=== PATIENT | male | born 1945 | race Caucasian/White ===

== ENCOUNTER → 2025-04-15 09:44 | Outpatient (CLI) | payer MEDICARE, SELFPAY ==
--- NOTE | 2025-04-15 10:28 | DI.RAD.S_ITS ---
PROCEDURE: XR LUMBAR SPINE 2-3V INDICATIONS: left flank/lumbar pain x 3 days TECHNIQUE: 3 views of the lumbar spine were acquired. COMPARISON: [facility], CR, XR KUB, 04/15/2025, 10:23. FINDINGS: Bones: 5 [id number] vertebrae are present. There is mild grade 1 anterolisthesis seen at the L5-S1 level. No associated pars defects are seen. There is a remote appearing fracture of the L1 level, with 20% loss of height anteriorly. No merrick acute features are seen. There is moderate disc space narrowing seen at L3-L4, with at least moderate disc space narrowing at L5-S1. The disc heights otherwise appear well-preserved. Lower lumbar spine facet arthropathy is seen. Soft tissues: Overlying bowel gas pattern is normal. No suspicious soft tissue calcifications. IMPRESSION: No merrick acute plain film abnormality is seen. There is an L1 fracture seen, which has a remote appearance. However, please correlate with patient history and focal tenderness. Grade 1 L5-S1 anterolisthesis seen, without associated pars defects. Generalized degenerative changes are seen, which are worst inferiorly. Dictated by: Guevara Booth M.D. on 04/15/2025 at 10:04 Approved by: Guevara Booth M.D. on 04/15/2025 at 10:06
--- NOTE | 2025-04-15 10:28 | DI.RAD.S_ITS ---
PROCEDURE: XR KUB INDICATIONS: left flank/back pain x3 days TECHNIQUE: One view of the abdomen acquired. COMPARISON: [facility], CR, XR LUMBAR SPINE 2-3V, 04/15/2025, 10:23. FINDINGS: Surgical changes and devices: Central pelvic clips are seen. Bowel: Bowel gas pattern is normal. Soft tissues: No suspicious abdominal calcifications. Visualized solid organ contours appear normal in size. Bones: No suspicious bony lesions. Age-appropriate bony degenerative changes are seen. IMPRESSION: No acute plain film abnormality is seen. Dictated by: Guevara Booth M.D. on 04/15/2025 at 10:03 Approved by: Guevara Booth M.D. on 04/15/2025 at 10:04
[2025-04-15 10:36] LABS: COVID-19 CEPHEID 4-PLEX PCR Negative (Negative); Influenza A - CEPHEID Flu A NEGATIVE (NEGATIVE); Influenza B - CEPHEID Flu B NEGATIVE (NEGATIVE)
== END ==
PROVIDERS: Visit Provider Physician Assistant
DX: R52 Pain, unspecified (principal); R35.1 Nocturia; M54.9 Dorsalgia, unspecified; N13.2 Hydronephrosis with renal and ureteral calculous obstruction; M43.17 Spondylolisthesis, lumbosacral region; S32.019A Unspecified fracture of first lumbar vertebra, initial encounter for closed fracture
CPT/HCPCS: 72100; 74018; 87086; 87637

== ENCOUNTER 2025-04-15 10:50 | Emergency (ER) | payer MEDICARE, SELFPAY ==
[2025-04-15 10:59] VITALS: BP 141/65; PULSE 66; RESP 18; TEMP 36.4; O2SAT 96; BMI 27.8
--- NOTE | 2025-04-15 11:11 | DI.CT.S_ITS ---
PROCEDURE: CT KIDNEY URETER BLADDER (KUB) INDICATIONS: flank pain TECHNIQUE: Axial sections were acquired from the lung bases to the pubic symphysis. Coronal and sagittal reformats were performed. For radiation dose reduction, the following was used: automated exposure control, adjustment of mA and/or kV according to patient size. COMPARISON: [facility], CR, XR LUMBAR SPINE 2-3V, 04/15/2025, 10:23. [facility], CR, XR KUB, 04/15/2025, 10:23. FINDINGS: Image quality: Diagnostic. Lower Chest: No significant findings. URINARY: Right Kidney: No stones or hydronephrosis. Several simple appearing right renal cysts can be seen. Right Ureter: No hydroureter. Left Kidney: There is moderate left-sided hydronephrosis. There is a nonobstructing left-sided kidney stone seen, measuring 4 mm. Mild left-sided perinephric fat stranding can be seen. Left Ureter: There is at least moderate left-sided hydroureter. There is an obstructing stone seen within the distal most left ureter, near the ureterovesicular junction, as on series 2, image 116 and on series 4, image 54, measuring 9 mm and 1000 Hounsfield units. Bladder: An irregular bladder is seen, with a right-sided bladder diverticulum. Stones can be seen within the bladder diverticulum. ABDOMEN: Liver: No contour-deforming solid mass. Gallbladder: No radiopaque gallstones or wall thickening. Biliary ducts: No biliary dilation. Pancreas: No ductal dilation. Spleen: Size is within normal limits. Adrenal Glands: No adrenal nodules. Stomach and Bowel: Normal colonic caliber, without significant wall thickening. No dilated loops of small bowel are seen. A normal appendix is noted. Peritoneum: No abnormal intraperitoneal fluid. No free air. Ventral Wall: No hernia. Abdominal Nodes: No enlarged retroperitoneal or mesenteric lymph nodes. Vessels: Aorta and inferior vena cava are normal in size. PELVIS: Pelvic Organs: Unremarkable. Pelvic Nodes: Unremarkable. Miscellaneous: Bilateral fat containing inguinal hernias are seen, left larger than right. Bones: Generalized degenerative changes are seen. There is a remote L1 fracture peroneal remote appearing Schmorl's node can be seen at the superior endplate of L4. Mild grade 1 anterolisthesis is seen at L5-S1, yet without associated pars defects. IMPRESSION: There is a 9 mm obstructing stone seen near the left ureterovesicular junction, with associated left-sided hydroureter and hydronephrosis. There is a nonobstructing left-sided kidney stone. Additional findings: Simple right renal cysts Significant lumbar spine degenerative change Irregular bladder, with stones within a right-sided bladder diverticulum Bilateral fat containing inguinal hernias Dictated by: Guevara Booth M.D. on 04/15/2025 at 10:40 Approved by: Guevara Booth M.D. on 04/15/2025 at 10:44
--- NOTE | 2025-04-15 11:13 | ED.BACK ---
HPI - Back Pain/Injury General Chief Complaint: Back Pain/Injury Stated Complaint: possible Kidney stone Sent from Walk in for CT Time Seen by Provider: 04/15/25 10:58 Source: patient History of Present Illness HPI Narrative: 79-year-old male with a history of coronary disease and kidney stones in the past complaining of left flank pain x3 days. He was seen in urgent care and had hematuria was referred here for further evaluation. Presently comfortable, symptoms have been present for 3 days. Had nausea and vomiting at the onset. No fevers or chills, no dysuria. He is not anticoagulated is taking Brilinta and a statin. Does not have a local primary care provider. Related Data Previous Rx's ?Medication ?Instructions ?Recorded ondansetron 4 mg disintegrating 4 mg PO Q6H PRN nausea and 04/15/25 tablet vomiting #14 tabs oxycodone 5 mg capsule 5 mg PO Q6H PRN pain #14 caps 04/15/25 Allergies Allergy/AdvReac Type Severity Reaction Status Date / Time No Known Drug Allergies Allergy Unverified 04/15/25 09:31 Patient History Social History Smoking Status: Never smoker Smoking Status: Never smoker Exam Initial Vital Signs Initial Vital Signs: Vital Signs Temperature 97.6 F 04/15/25 10:59 Pulse Rate 66 04/15/25 10:59 Respiratory Rate 18 04/15/25 10:59 Blood Pressure 141/65 H 04/15/25 10:59 Pulse Oximetry 96 04/15/25 10:59 Oxygen Delivery Method Room Air 04/15/25 10:59 vital signs are reviewed Const General: cooperative and No acute distress [facility] Head: normocephalic and atraumatic Face and sinus: face symmetric Mouth: moist mucous membranes Neck Neck: normal visual inspection, supple and No JVD Resp Effort & Inspection: normal respiratory effort and able to speak in complete sentences Auscultation: clear to auscultation bilaterally Cardio Rate: regular rate Rhythm: regular rhythm Heart Sounds: no murmurs Other: Normal heart rate GI Inspection: normal to inspection Palpation: soft Auscultation: normal bowel sounds Other: No CVAT Skin General: no rashes or lesions noted and warm Neuro General: patient alert, patient oriented x3 and moves all extremities Speech: speech normal Psych Appearance: grossly normal Course Orders Ordered: ED Orders 04/15/25 11:11 CT kidney ureter bladder (KUB) Stat UA dip and micro [Urinalysis and Microscopic] Stat 04/15/25 11:32 CBC Auto Diff [Complete Blood Count AUTO DIFF] Stat CMP [Comprehensive Metabolic Panel] Stat Reevaluation(s) Reevaluation #1: Discussed with Urology, Dr. Laboy, patient can be seen in the office within the next week, they will arrange that. Prior to discharge I am to confirm that the patient does not have concern for infection and pain is adequately controlled Vital Signs Vital signs: Vital Signs - 8 hr 04/15/25 10:59 Temperature 97.6 F Pulse Rate 66 Respiratory Rate 18 Blood Pressure 141/65 H Pulse Oximetry 96 Oxygen Delivery Method Room Air MDM - Back Pain/Injury Lab Data Lab results narrative: CBC is unremarkable, platelets are normal creatinine is elevated with no baseline known. I reviewed urinalysis from urgent Care, has hematuria without leukocyte esterase or nitrites 04/15/25 11:32 04/15/25 11:32 Labs: Lab Results 04/15/25 Range/Units 11:32 WBC 10.4 (4.5-11.0) X10^3/uL RBC 4.45 L (4.5-5.9) X10^6/uL Hgb 14.3 (13.5-17.5) g/dL Hct 41.7 (41-53) % MCV 93.7 (80-100) fL MCH 32.2 (26-34) PG MCHC 34.4 (30-36) % RDW 14.9 H (11.6-14.8) % Plt Count 180 (150-400) X10^3/uL Neut % (Auto) 79.5 H (50-75) % Lymph % (Auto) 8.4 L (25-40) % Cotton % (Auto) 11.1 (3-14) % Eos % (Auto) 0.6 L (2-4) % Baso % (Auto) 0.4 (0-2) % Neut # (Auto) 8300 H (7279-5921) /uL Lymph # (Auto) 900 L (0597-2624) /uL Cotton # (Auto) 1200 H (0-900) /uL Eos # (Auto) 100 (0-450) /uL Baso # (Auto) 0 (0-100) /uL Sodium 134 L (137-145) mmol/L Potassium 4.4 (3.4-5.1) mmol/L Chloride 104 (98-107) mmol/L Carbon Dioxide 19 L (22-32) mmol/L BUN 31 H (9-20) mg/dL Creatinine 1.85 H (0.66-1.25) mg/dL Estimated GFR 36 L (>60) mL/min BUN/Creatinine Ratio 16.8 (6-22) Glucose 100 H (70-99) mg/dL Calcium 9.6 (8.4-10.2) mg/dL Total Bilirubin 1.5 H (0.2-1.3) mg/dL AST 33 (17-59) IU/L ALT 21 (<50) IU/L Alkaline Phosphatase 85 (38-126) U/L Total Protein 7.5 (6.3-8.2) g/dL Albumin 4.4 (3.5-5.0) g/dL Globulin 3.1 (1.7-4.1) g/dL Albumin/Globulin Ratio 1.4 (1.0-2.8) Imaging Data CT scan - abdomen/pelvis: My Impression: Independently reviewed CT KUB, large stone distal left ureter with hydronephrosis on the left Radiologist's Impression: [place] [address] CT Scan Report Signed Patient: Konrad Herzog MR#: [id number] : 1945 Acct:[id number] Age/Sex: 79 / M Date of Service: 04/15/25 Loc: ED Accession Number: [id number] Procedure: CT kidney ureter bladder (KUB) Ordering Provider: Johnathan Bhatti MD PROCEDURE: CT KIDNEY URETER BLADDER (KUB) INDICATIONS: flank pain TECHNIQUE: Axial sections were acquired from the lung bases to the pubic symphysis. Coronal and sagittal reformats were performed. For radiation dose reduction, the following was used: automated exposure control, adjustment of mA and/or kV according to patient size. COMPARISON: [facility], CR, XR LUMBAR SPINE 2-3V, 04/15/2025, 10:23. [facility], CR, XR KUB, 04/15/2025, 10:23. FINDINGS: Image quality: Diagnostic. Lower Chest: No significant findings. URINARY: Right Kidney: No stones or hydronephrosis. Several simple appearing right renal cysts can be seen. Right Ureter: No hydroureter. Left Kidney: There is moderate left-sided hydronephrosis. There is a nonobstructing left-sided kidney stone seen, measuring 4 mm. Mild left-sided perinephric fat stranding can be seen. Left Ureter: There is at least moderate left-sided hydroureter. There is an obstructing stone seen within the distal most left ureter, near the ureterovesicular junction, as on series 2, image 116 and on series 4, image 54, measuring 9 mm and 1000 Hounsfield units. Bladder: An irregular bladder is seen, with a right-sided bladder diverticulum. Stones can be seen within the bladder diverticulum. ABDOMEN: Liver: No contour-deforming solid mass. Gallbladder: No radiopaque gallstones or wall thickening. Biliary ducts: No biliary dilation. Pancreas: No ductal dilation. Spleen: Size is within normal limits. Adrenal Glands: No adrenal nodules. Stomach and Bowel: Normal colonic caliber, without significant wall thickening. No dilated loops of small bowel are seen. A normal appendix is noted. Peritoneum: No abnormal intraperitoneal fluid. No free air. Ventral Wall: No hernia. Abdominal Nodes: No enlarged retroperitoneal or mesenteric lymph nodes. Vessels: Aorta and inferior vena cava are normal in size. PELVIS: Pelvic Organs: Unremarkable. Pelvic Nodes: Unremarkable. Miscellaneous: Bilateral fat containing inguinal hernias are seen, left larger than right. Bones: Generalized degenerative changes are seen. There is a remote L1 fracture peroneal remote appearing Schmorl's node can be seen at the superior endplate of L4. Mild grade 1 anterolisthesis is seen at L5-S1, yet without associated pars defects. IMPRESSION: There is a 9 mm obstructing stone seen near the left ureterovesicular junction, with associated left-sided hydroureter and hydronephrosis. There is a nonobstructing left-sided kidney stone. Additional findings: Simple right renal cysts Significant lumbar spine degenerative change Irregular bladder, with stones within a right-sided bladder diverticulum Bilateral fat containing inguinal hernias Dictated by: Guevara Booth M.D. on 04/15/2025 at 10:40 Approved by: Guevara Booth M.D. on 04/15/2025 at 10:44 MDM Narrative Medical decision making narrative: Well-appearing 79-year-old male with left flank pain. Has hematuria on urine dipstick from urgent care with urine described as being grossly bloody. He is not having dysuria. I still we will consider infection is possible although clinically he does not have pyelonephritis. Concerned with the possibility of abdominal aortic aneurysm, considered zoster this does not seem to be present. I think a kidney stone is likely we will obtain a CT KUB to further assess I have also ordered basic labs to evaluate his renal function and electrolytes as well as platelet count Patient appears comfortable at the time of discharge. Discussed indications for return to the emergency department including signs of infection or uncontrolled pain, has urology follow up arranged. Discharge Plan Departure Patient Disposition: Home Clinical Impression: Renal colic on left side Hydronephrosis Qualifiers: Hydronephrosis type: with ureteral calculous obstruction Qualified Code(s): N13.2 - Hydronephrosis with renal and ureteral calculous obstruction Instructions: Kidney Stones -- Adult Activity Restrictions/Additional Instructions: Emergency department workup today shows that you have a large left ureteral stone. It is down low but probably will not pass on its own. Get adequate fluids, you can use ondansetron as needed for nausea and acetaminophen as needed for pain, I have also provided a prescription for a few oxycodone they can use as needed for pain. Urology will contact you for follow up in the next week for a recheck. In the meantime, strain your urine when you urinate and if you develop fevers shaking chills uncontrolled pain or vomiting return to the emergency department. Docusate sodium or Colace is available [id number] has a stool softener, uses if you are needing to use the oxycodone, this should prevent constipation. Prescriptions: New oxycodone 5 mg capsule 5 mg PO Q6H PRN (Reason: pain) Qty: 14 0RF ondansetron 4 mg tablet,disintegrating 4 mg PO Q6H PRN (Reason: nausea and vomiting) Qty: 14 0RF Referrals: Luis Laboy DO [Physician, Urology] Referral Note: L ureteral stone, hydronephrosis Stand Alone Forms: Patient Portal/API
[2025-04-15 11:39] LABS: Add Manual Diff / Slide Review NO; Hematocrit 41.7 % (41-53); Hemoglobin 14.3 g/dL (13.5-17.5); Lymphocytes Absolute Auto 900 /uL (1100-4500); Mean Corpuscular HGB Conc 34.4 % (30-36); Mean Corpuscular Hemoglobin 32.2 PG (26-34); Mean Corpuscular Volume 93.7 fL (80-100); Platelet Count 180 X10^3/uL (150-400)
[2025-04-15 11:56] LABS: Alanine Aminotransferase 21 IU/L (<50); Albumin 4.4 g/dL (3.5-5.0); Albumin Globulin Ratio 1.4 (1.0-2.8); Alkaline Phosphatase 85 U/L (38-126); Blood Urea Nitrogen 31 mg/dL (9-20); Calcium 9.6 mg/dL (8.4-10.2); Carbon Dioxide 19 mmol/L (22-32); Chloride 104 mmol/L (98-107); Estimated Glomerular Filt Rate 36 mL/min (>60); Globulin 3.1 g/dL (1.7-4.1); Glucose 100 mg/dL (70-99); HEMOLYSIS 19 (0-50); Potassium 4.4 mmol/L (3.4-5.1); Sodium 134 mmol/L (137-145); Total Protein 7.5 g/dL (6.3-8.2)
[2025-04-15 12:56] VITALS: BP 140/66; PULSE 72; O2SAT 97
== END 2025-04-15 13:06 | disposition home or self-care (01) ==
PROVIDERS: Emergency Provider Emergency Medicine
DX: N13.2 Hydronephrosis with renal and ureteral calculous obstruction (principal); N23 Unspecified renal colic; R11.2 Nausea with vomiting, unspecified
CPT/HCPCS: 74176; 80053; 85025; 99281; 99284

== ENCOUNTER → 2025-04-21 15:18 | Outpatient (CLI) | payer MEDICARE, SELFPAY | PROVIDERS: Visit Provider Urology | DX: R39.9 Unspecified symptoms and signs involving the genitourinary system (principal); N20.1 Calculus of ureter; N21.0 Calculus in bladder | CPT/HCPCS: 81002; 87086; 99214 ==

== ENCOUNTER 2025-04-28 13:41 | Day surgery (SDC) | payer MEDICARE, SELFPAY ==
[2025-04-27 08:55] VITALS: BMI 27.8
--- NOTE | 2025-04-28 | PATH_ITS ---
[facility] Accession Number: [id number] No. of containers..01 Tissue . 01 Material submitted: . bladder - BLADDER MASS . 01 Diagnosis: BLADDER MASS, TRANSURETHRAL RESECTION OF BLADDER TUMOR: Invasive urothelial carcinoma with micropapillary features. Please see cancer case summary. . CANCER CASE SUMMARY Procedure: Transurethral resection of bladder tumor (TURBT). Tumor: Tumor site: Within diverticulum of right bladder wall per operative note 04/28/2025. Histologic type: Urothelial carcinoma, micropapillary. Histologic grade: High grade. Tumor extent: Extensive invasion into lamina propria (subepithelial connective tissue). Lymphatic and/or vascular invasion: Not identified. Mucularis propria: Not identified. Additional findings: Urothelial carcinoma in-situ. ENRIQUETA 05/04/2025 1121 Local . 01 Comment: This case was also reviewed by Dr. Navid Alvarenga, who agrees with the interpretation. . Dr. Lavinia Gardner discussed results with Dr. Benoit Woods's Billing Department Supervisor, on 05-04-25 at approximately 11:09 a.m. . 01 Electronically signed: . Lavinia Gardner MD, Pathologist NPI- [id number] . 01 Gross description: . Received in formalin with two identifiers and bladder mass are multiple waldron soft tissue fragments received on friable Telfa paper aggregating to 1.2 x 1.0 x 0.3 cm. Filtered and submitted entirely in A1. ([id number]) /MRV 04/30/20253 Local . 01 Pathologist provided ICD-10: N20.1, N21.0, C67.9 . 01 CPT . 016186 Specimen Comment: A courtesy copy of this report has been sent to [facility] Performed at: [address] [address] [address] [address], [place], [place] [id number] MD Konrad Patel MD Phone: [phone]
[2025-04-28] MEDS: LACTATED RINGERS 1,000 ML 42 ML IV (14:08)
[2025-04-28] MEDS: ACETAMINOPHEN 325 MG TABLET 975 MG PO (14:08)
[2025-04-28 14:13] VITALS: BP 124/65; PULSE 65; RESP 16; TEMP 36.6; O2SAT 99; BMI 27.2
--- NOTE | 2025-04-28 15:53 | PM.PREOP ---
Pre-operative Note COVID-19 COVID-19 status: Not tested Interval Note History & Physical reviewed/Exam performed by Physician: Yes Changes to H&P: No
[2025-04-28] MEDS: levoFLOXacin 500 MG/100 ML PIGGYBACK 100 MG IV (16:25)
--- NOTE | 2025-04-28 16:48 | SUR.OPER ---
Lithotomy on padded OR bed, head on pillow, arms secured on padded arm boards at <90 degrees abduction. Legs secured in padded yellow fins stirrups. All pressure points padded and protected
[2025-04-28 17:43] VITALS: BP 145/88; PULSE 72; RESP 12; TEMP 36.5; O2SAT 95
[2025-04-28 17:52] VITALS: BP 136/65; PULSE 69; RESP 13; TEMP 36.5; O2SAT 96
--- NOTE | 2025-04-28 17:52 | P.OP_ITS ---
Operative Date/Time/Diagnoses Date of procedure: 04/28/25 Time of procedure: 16:30 Pre-op diagnosis: Bladder stones, left ureteral stone Post-op diagnosis: other (Bladder mass, bladder stones, left ureteral stone) Procedure & Clinicians Procedure: Cystoscopy Transurethral resection of bladder tumor Left retrograde ureteropyelogram Left ureteroscopy, laser lithotripsy Left ureteral stent placement Intraoperative interpretation of fluoroscopic images, total time < 1 hour Same procedure(s) as scheduled: No (Was found to have a 2cm bladder mass within a right bladder diverticulum) Indications: 79 y/o M w/ h/o nephrolithiasis who was recently diagnosed w/ a 9mm left distal ureterolith with resultant upstream moderate hydroureteronephrosis and several stones within a bladder wall diverticulum. Discussed treatment options to include continued medical expulsion therapy (not recommended given he has to sail home) vs cystoscopy, left ureteroscopy, laser lithotripsy with left ureteral stent placement and a cystolithalopaxy. Discussed risks of the procedure to include but not limited to pain, bleeding, infection, injury to urethra/bladder/ureter, inability to access the ureter requiring discussion with Interventional Radiology regarding a possible ureteral stent placement in an antegrade fashion vs a possible nephroureteral stent and/or percutaneous nephrostomy tube, urinary tract infection, inability to remove all of the stone in one setting, need for emergent open repair of bladder and/or ureter, need for multiple ureteroscopic interventions necessary to render the patient stone free. Surgeon: Luis Laboy Click Yes if Unassisted: Yes Anesthesia Type: General Operative Notes Findings: 2cm and a 1cm papillary mass within a right bladder wall diverticulum concerning for urothelial cell carcinoma with adherent bladder stones, a few large bladder stones within the diverticulum, large left ureteral stone Closure Type: not applicable Specimen(s): other (Bladder mass, bladder stones, left ureteral stone) Applied: none Estimated Blood Loss (mL): 20 Blood products transfused: none Procedure in detail: Patient was identified in the preoperative holding area and consent confirmed. He was then brought to the operating room where general anesthesia was induced. He was then placed in the low lithotomy position. He was then prepped and draped in the usual sterile fashion. A surgical timeout was conducted and all were in agreement. Access to the bladder was obtained via a 21Fr cystoscope. Complete cystoscopy was then performed using a 30 and 70 degree lens. A 2cm and a 1cm papillary mass concerning for urothelial cell carcinoma was appreciated within a right bladder wall diverticulum with adherent bladder stones. Bilateral ureteral orifices were visualized and noted to be orthotopic in nature. No other concerning lesions were appreciated. The left ureteral stone was noted to be at the level of the left ureteral orifice. The cystoscope was then removed and his urethral meatus was serially dilated using [place] sounds from 22Fr to 30Fr. The 26Fr resectoscope with visual obturator was then advanced through his urethra and into his bladder. The working element with Gyrus loop was then assembled and passed through the resectoscope and into the bladder. A few large bladder stones were appreciated within this bladder diverticulum and were evacuated via the resectoscope sheath. The aforementioned masses were then resected as much as they could be (given they were in a diverticulum and did not have muscularis propria present). Any residual mass was then extensively fulgurated. All bladder specimens were then manually evacuated from the bladder using the resectoscope. The resectoscope was then removed and the semirigid ureteroscope was easily advanced to the level of the left ureteral orifice and a 272 micron laser fiber was then utilized to perform laser lithotripsy.? All stone fragments >1mm in size were removed via the stone basket and sent for chemical analysis.? Significant edema was appreciated at the level of the left ureteral orifice.? A 0.035 sensor tip ureteral guidewire was then advanced through the ureteroscope and into the left renal pelvis. The entire ureter was then visualized upon removal of the ureteroscope. The cystoscope was then backloaded over the ureteral guidewire and advanced into the bladder. A 6Fr multi-length JJ ureteral stent without string was then advanced over the ureteral guidewire.? Upon removal of the guidewire, a good curl was noted in the left renal pelvis upon fluoroscopy and visually within the bladder.? The bladder was then drained.? Anesthesia was reversed, he was extubated in the OR and transferred to the PACU in stable condition for recovery. Complications: none Post-operative Condition: stable Disposition: PACU Plan for aftercare: Discharge home from PACU. Will return to Urology clinic in 4 weeks for a cystoscopy and left ureteral stent removal. Will be contacted over the phone to discuss his pathology results.
--- NOTE | 2025-04-28 17:54 | DI.RAD.S_ITS ---
PROCEDURE: XR ABDOMEN 1V INDICATIONS: LEFT CYSTO TECHNIQUE: 2 intra-operative images acquired by the Urology service. COMPARISON: None. FINDINGS: Left double pigtail ureteral stent is in proper position with the proximal end overlying the renal pelvis and the distal end overlying the urinary bladder. Upper collecting system is opacified appears grossly normal IMPRESSION: Left ureteral stent in satisfactory position Dictated by: Mundo Dee M.D. on 04/29/2025 at 11:16 Approved by: Mundo Dee M.D. on 04/29/2025 at 11:17
== END 2025-04-28 18:12 | disposition home or self-care (01) ==
PROVIDERS: Referring Provider Urology; Visit Provider Urology
PROC: 0TF78ZZ Fragmentation in Left Ureter, Via Natural or Artificial Opening Endoscopic (ICD-10-PCS; CPT 52353; principal; 2025-04-28 15:15)
DX: N20.1 Calculus of ureter (principal); N21.0 Calculus in bladder; Z95.818 Presence of other cardiac implants and grafts; C67.9 Malignant neoplasm of bladder, unspecified
CPT/HCPCS: 52356; 52235; 74018; 76000; 82365; C2617; J1100; J1956; J2405; J2704; J3010; Q9967